=== PATIENT | female | born 1990 | race Caucasian/White ===

== ENCOUNTER 2022-12-26 12:25 | Emergency (ER) | payer BC, SELFPAY ==
[2022-12-26 12:31] VITALS: BP 137/88; PULSE 67; RESP 18; TEMP 36.6; O2SAT 97; BMI 27.5
--- NOTE | 2022-12-26 12:59 | XR_ITS ---
The [address] [address] Patient Name: JIMBO MCCLAIN MRN: [id number] date: 1990 Sex: F Assigned Patient Location: ER Current Patient Location: ER Accession/Order Number: [id number] Exam Date: 12/26/2022 13:05 Report Date: 12/26/2022 13:49 At the request of: CARLOS GONZALEZ Procedure: XR foot LT min 3V EXAM: XR foot LT min 3V HISTORY: Left foot injury COMPARISON: None. TECHNIQUE: 3 views left foot. FINDINGS: No fracture or dislocation left foot. No significant soft tissue swelling. Minimal degenerative change of the great toe MTP joint. No radiopaque foreign body. XR/XR foot LT min 3V IMPRESSION: No acute process left foot. Electronically authenticated by: MATTI JEREZ Date: 12/26/2022 13:49
--- NOTE | 2022-12-26 13:53 | ED.LOWEXI1 ---
HPI - Extremity Injury (Lower) General Chief Complaint: Extremity Injury, Lower Stated Complaint: POSS. BREAK TOP OF L FOOT Time Seen by Provider: 12/26/22 12:38 Source: patient Mode of arrival: walk-in Limitations: no limitations History of Present Illness HPI Narrative: patient dropped her phone on top of her left foot this morning and has been experience numbness/tingling since then. She is . Related Data Home Medications Medication Instructions Recorded Confirmed escitalopram oxalate 20 mg tablet 20 mg PO DAILY 12/26/22 12/26/22 quetiapine 50 mg tablet 25 mg PO DAILY 12/26/22 12/26/22 Allergies Allergy/AdvReac Type Severity Reaction Status Date / Time No Known Drug Allergies Allergy Verified 12/26/22 12:34 Exam Narrative Exam Narrative: Nurses notes and vital signs reviewed and patient is not hypoxic. General: Well-appearing and in no apparent distress. Skin: Warm, dry, no pallor noted. No rash. Cardiovascular: normal peripheral perfusion. Respiratory: No accessory muscle use or respiratory distress. Musculoskeletal: left foot and toes with normal ROM, no abrasion but small area of ecchymosis noted, no edema/swelling Neurological: A&O x4. No cranial nerve dysfunction observed. No truncal ataxia. Moves all extremities. Sensation intact. Psychiatric: Cooperative and interactive. Normal mood and affect. Constitutional Vital Signs, click to edit/add: Last Vital Signs Temp 97.8 F 12/26/22 12:31 Pulse 67 12/26/22 12:31 Resp 18 12/26/22 12:31 BP 137/88 12/26/22 12:31 Pulse Ox 97 12/26/22 12:31 O2 Del Method Room Air 12/26/22 12:31 Course Vital Signs Vital signs: Vital Signs Temperature 97.8 F 12/26/22 12:31 Pulse Rate 67 12/26/22 12:31 Respiratory Rate 18 12/26/22 12:31 Blood Pressure 137/88 12/26/22 12:31 Pulse Oximetry 97 12/26/22 12:31 Oxygen Delivery Method Room Air 12/26/22 12:31 Temperature 97.8 F 12/26/22 12:31 Pulse Rate 67 12/26/22 12:31 Respiratory Rate 18 12/26/22 12:31 Blood Pressure 137/88 12/26/22 12:31 Pulse Oximetry 97 12/26/22 12:31 Oxygen Delivery Method Room Air 12/26/22 12:31 MDM - Extremity Injury (Lower) MDM Narrative Medical decision making narrative: no fracture identified by the radiologist on xrays. Patient informed of negative results and given reassurance, discharged home. Recommend tylenol for pain. Discharge Plan Discharge Chief Complaint: Extremity Injury, Lower Clinical Impression: Contusion of foot, left Patient Disposition: Home, Self-Care Time of Disposition Decision: 13:55 Prescriptions / Home Meds: No Action escitalopram oxalate 20 mg tablet 20 mg PO DAILY quetiapine 50 mg tablet 25 mg PO DAILY Instructions: Foot Contusion (ED) Stand Alone Forms: Portal Instructions Referrals: Physician,Non-Staff, MD [Primary Care Provider] - 1 week
== END 2022-12-26 14:04 | disposition home or self-care (01) ==
PROVIDERS: Emergency Provider Emergency Medicine
DX: O9A.219 Injury, poisoning and certain other consequences of external causes complicating pregnancy, unspecified trimester (principal); S90.32XA Contusion of left foot, initial encounter; Z3A.00 Weeks of gestation of pregnancy not specified; W20.8XXA Other cause of strike by thrown, projected or falling object, initial encounter
CPT/HCPCS: 73630; 99283

== ENCOUNTER 2023-11-24 10:00 | Outpatient (OUT) | payer BC, SELFPAY ==
[2023-11-24 10:32] LABS: Basophils Percent Auto 0.5 % (0.2-2.0); Eosinophils Absolute Auto 0.1 10^3/uL (0.0-0.7); Eosinophils Percent Auto 2.1 % (0.9-7.0); Hematocrit 42.4 % (36.0-48.0); Immature Granulocytes Abs Auto 0.01 10^3/uL (0.00-0.03); Immature Granulocytes Pct Auto 0.2 % (0.0-0.5); Lymphocytes Absolute Auto 2.2 10^3/uL (1.2-3.8); Mean Corpuscular Volume 87.8 fL (81.0-99.0); Mean Platelet Volume 11.3 fL (9.5-13.5); Monocytes Absolute Auto 0.4 10^3/uL (0.3-0.8); Monocytes Percent Auto 6.3 % (1.7-12.0); Neutrophils Absolute Auto 3.4 10^3/uL (1.4-6.5); Neutrophils Percent Auto 54.9 % (43.0-75.0); Platelet Count 233 10^3/uL (150-450); Red Blood Count 4.83 10^6/uL (4.20-5.40); Red Cell Distribution Width 12.2 % (11.0-15.0); White Blood Count 6.2 10^3/uL (4.0-11.0)
[2023-11-24 11:21] LABS: Estimated Average Glucose 103 mg/dL; Glycohemoglobin A1C 5.2 % (4.5-6.2)
[2023-11-24 12:02] LABS: Alanine Aminotransferase 17 U/L (14-59); Albumin Globulin Ratio 1.1; Albumin Level 4.1 g/dL (3.4-5.0); Alkaline Phosphatase 88 U/L (46-116); Anion Gap 10.4; Aspartate Amino Transferase 14 U/L (15-37); BUN Creatinine Ratio 18.8; Bilirubin Total 1.2 mg/dL (0.2-1.0); Calcium 9.5 mg/dL (8.5-10.1); Carbon Dioxide 30.5 mmol/L (21.0-32.0); Chloride 102 mmol/L (98-107); Estimated GFR (African America >60 (>=60); Estimated GFR (Non-African Ame >60 (>=60); Globulin 3.9 g/dL; Glucose 112 mg/dL (74-106); Potassium 3.9 mmol/L (3.5-5.1); Sodium 139 mmol/L (136-145); Thyroid Stimulating Hormone 0.407 uIU/mL (0.358-3.740)
[2023-11-24 12:13] LABS: Free T4 1.17 ng/dL (0.76-1.46)
== END 2023-11-24 10:01 | disposition home or self-care (01) ==
LOC: LAB 10:01
PROVIDERS: PCP Family Medicine; Visit Provider Family Medicine
DX: Z00.00 Encounter for general adult medical examination without abnormal findings (principal)
CPT/HCPCS: 36415; 80053; 82728; 83036; 83540; 84439; 84443; 85025